=== PATIENT | male | born 1995 | race American Indian/Alaskan Native ===

== ENCOUNTER 2020-05-26 18:24 | Emergency (ER) | payer OTHER ==
--- NOTE | 2020-05-26 19:11 | Event Note ---
ED Screening Note Date of service: 05/26/20 Time: 19:08 ED Screening Note: left flank pain, left sided abdominal pain x3 days ago. No fever, N/V/D. Pmhx sickle cell trait Med: B-12 Allergies: milk, NKDA GENERAL APPEARANCE: Well-developed, well-nourished, no acute distress HEENT: Normocephalic and atraumatic. No scleral icterus. Pupils are equal, round, and reactive to light and accommodation. No conjunctival injection is noted. Oropharynx is clear. Mouth revealed good dentition, no lesions. Tympanic membranes are clear. NECK: Supple. Trachea is midline. No evidence of thyroid enlargement. No lymphadenopathy or tenderness. CHEST: Symmetric. Nontender to palpation. LUNGS: Breath sounds are equal and clear bilaterally. No wheezes, rhonchi, or rales. HEART: Regular rate and rhythm with normal S1 and S2. No murmurs, gallops, or rubs. BREASTS: Symmetrical. No skin or nipple retractions. No nipple discharges or masses. ABDOMEN: Soft, flat, and benign. No mass, tenderness, guarding, or rebound. No organomegaly or hernia. Bowel sounds are present. No CVA tenderness or flank mass. GENITOURINARY: Deferred RECTAL: Deferred EXTREMITIES: No cyanosis, clubbing, or edema. No lower extreme edema, negative Homans sign bilaterally NEUROLOGIC: No focal sensory or motor deficits are noted. Gait is normal. Cranial nerves II through XII are intact. Deep tendon reflexes are intact. PSYCHIATRIC: The patient is awake, alert, and oriented x3. Recent and remote memory is intact. Appropriate mood and affect. SKIN: Warm, dry, and well perfused. Good turgor. No lesions, nodules or rashes are noted. No onychomycosis. LYMPHATICS: No cervical, axillary, or groin adenopathy is noted. This initial assessment/diagnostic orders/clinical plan/treatment(s) is/are subject to change based on patients health status, clinical progression and re- assessment by fellow clinical providers in the ED. Further treatment and workup at subsequent clinical providers discretion. Patient/guardian urged not to elope from the ED as their condition may be serious if not clinically assessed and managed. Initial orders include: CBC, CMP, lipase, Urinalysis
[2020-05-26 20:28] LABS: Bacteria,Urine 1+ /HPF (Negative); Bilirubin,Urine NEG (Negative); Blood,Urine NEG (Negative); Color,Urine Yellow (Yellow); Mucus,Urine FEW /HPF; Protein,Urine <15 mg/dL mg/dL (Negative); Urobilinogen,Urine < 2.0 mg/dL (<2.0)
[2020-05-26 20:36] VITALS: BP 125/79
--- NOTE | 2020-05-26 21:01 | Emergency Department Report ---
ED Male HPI - General Chief complaint: Abdominal Pain Stated complaint: HEADACHE,BACK PAIN STOMACH Time Seen by Provider: 05/26/20 19:59 Source: patient Mode of arrival: Ambulatory Limitations: No Limitations - History of Present Illness MD Complaint: dysuria -: Gradual, days(s) (2) Location: abdomen (Suprapubic region and radiates to the left) Quality: burning Consistency: constant Improves with: none Worsens with: urination, palpation denies: discharge, swelling, rash, urinary retention, blood in urine, fever - Related Data Previous Rx's Medication Instructions Recorded Last Taken Type Azithromycin [Zithromax TAB] 1,000 mg PO QDAY #2 tablet 05/26/20 Unknown Rx Nitrofurantoin Armstrong/M-Cryst 100 mg PO Q12HR #20 capsule 05/26/20 Unknown Rx [Macrobid CAP] Phenazopyridine [Pyridium] 200 mg PO TID #9 tab 05/26/20 Unknown Rx Allergies Allergy/AdvReac Type Severity Reaction Status Date / Time milk Allergy Hives Verified 08/19/18 00:50 Sulfa (Sulfonamide Allergy Hives Verified 08/19/18 00:50 Antibiotics) ED Review of Systems ROS: Stated complaint: HEADACHE,BACK PAIN STOMACH Other details as noted in HPI Comment: All other systems reviewed and negative ED Past Medical Hx - Past Medical History Hx Sickle Cell Disease: Yes - Surgical History Past Surgical History?: No - Social History Smoking Status: Never Smoker - Medications Home Medications: Home Medications Medication Instructions Recorded Confirmed Last Taken Type Azithromycin [Zithromax TAB] 1,000 mg PO QDAY #2 tablet 05/26/20 Unknown Rx Nitrofurantoin Armstrong/M-Cryst 100 mg PO Q12HR #20 capsule 05/26/20 Unknown Rx [Macrobid CAP] Phenazopyridine [Pyridium] 200 mg PO TID #9 tab 05/26/20 Unknown Rx ED Physical Exam - General Limitations: No Limitations General appearance: alert, in no apparent distress - Head Head exam: Present: atraumatic, normocephalic - Eye Eye exam: Present: normal appearance, PERRL, EOMI - ENT ENT exam: Present: mucous membranes moist - Neck Neck exam: Present: normal inspection, full ROM - Respiratory Respiratory exam: Present: normal lung sounds bilaterally. Absent: respiratory distress - Cardiovascular Cardiovascular Exam: Present: regular rate, normal rhythm. Absent: systolic murmur, diastolic murmur, rubs, gallop - GI/Abdominal GI/Abdominal exam: Present: soft, tenderness (Muscle pubic discomfort with palpation.), normal bowel sounds - Rectal Rectal exam: Present: deferred - Extremities Exam Extremities exam: Present: normal inspection - Back Exam Back exam: Present: normal inspection. Absent: CVA tenderness (R), CVA tenderness (L), muscle spasm - Neurological Exam Neurological exam: Present: alert, oriented X3, CN II-XII intact - Psychiatric Psychiatric exam: Present: normal affect, normal mood - Skin Skin exam: Present: warm, dry, intact, normal color. Absent: rash ED Course Vital Signs 05/26/20 05/26/20 18:42 20:34 Temperature 98.4 F 98.5 F Pulse Rate 83 69 Respiratory 16 14 Rate Blood Pressure 116/74 Blood Pressure 125/79 [Right] O2 Sat by Pulse 98 98 Oximetry ED Medical Decision Making - Lab Data Lab Results 05/26/20 Range/Units 19:52 Urine Color Yellow (Yellow) Urine Turbidity Slightly-cloudy (Clear) Urine pH 5.0 (5.0-7.0) Ur Specific Klemme 1.014 (1.003-1.030) Urine Protein <15 mg/dl (Negative) mg/dL Urine Glucose (UA) Neg (Negative) mg/dL Urine Ketones Neg (Negative) mg/dL Urine Blood Neg (Negative) Urine Nitrite Neg (Negative) Urine Bilirubin Neg (Negative) Urine Urobilinogen < 2.0 (<2.0) mg/dL Ur Leukocyte Esterase Lg (Negative) Urine WBC (Auto) 23.0 H (0.0-6.0) /HPF Urine RBC (Auto) 5.0 (0.0-6.0) /HPF U Epithel Cells (Auto) 3.0 (0-13.0) /HPF Urine Bacteria (Auto) 1+ (Negative) /HPF Urine Mucus Few /HPF - Medical Decision Making This patient presents to the emergency department with symptoms consistent with acute uncomplicated cystitis. No systemic symptoms. Not septic. She is well- appearing. Low suspicion for acute pyelonephritis given the lack of fever, CVA tenderness, or systemic features. Low suspicion for for kidney stone or infected stone. Not in age range for and her history and and presentation are complicated. No no indications for labs or imaging at this time. Critical care attestation.: If time is entered above; I have spent that time in minutes in the direct care of this critically ill patient, excluding procedure time. ED Disposition Clinical Impression: UTI (urinary tract infection) Disposition: TO HOME OR SELFCARE Is pt being admited?: No Does the pt Need Aspirin: No Condition: Stable Instructions: Urinary Tract Infection in Men (ED), Dysuria (ED), Phenazopyridine (By mouth) Prescriptions: Nitrofurantoin Armstrong/M-Cryst [Macrobid CAP] 100 mg PO Q12HR #20 capsule Phenazopyridine [Pyridium] 200 mg PO TID #9 tab Azithromycin [Zithromax TAB] 1,000 mg PO QDAY #2 tablet Referrals: PRIMARY CARE, [Primary Care Provider] - 3-5 Days [facility] [Provider Group] - 3-5 Days
== END 2020-05-26 21:03 | disposition home or self-care (01) ==
LOC: ED 18:24
DX: N39.0 Urinary tract infection, site not specified (principal); D57.80 Other sickle-cell disorders without crisis
CPT/HCPCS: 81001; 87086; 99283